=== PATIENT | female | born 1980 | race Hispanic/Latino ===

== ENCOUNTER 2022-03-12 12:25 | Emergency (ER) | payer OTHER ==
[~2022-03-12] VITALS: Ht 152.4 cm; Wt 133.8 kg
[2022-03-12 12:27] VITALS: BP_DIAS 97
[2022-03-12] MEDS ORDERED: ACETAMINOPHEN 500 MG TABLET ONE (12:33)
[2022-03-12 12:57] LABS: BASOPHILS % (AUTO) 0.2 % (0.0-5.0); HEMATOCRIT 35.7 % (36-48); LYMPHOCYTES % (AUTO) 19.3 % (21.0-51.0); MEAN CORPUSCULAR HEMOGLOBIN 25.6 pg (27.0-33.0); MEAN CORPUSCULAR HGB CONC 30.8 g/dL (32.0-36.0); MONOCYTES % (AUTO) 9.6 % (3.0-13.0); NEUTROPHILS % (AUTO) 69.9 % (40.0-77.0); PLATELET COUNT (AUTO) 278 K/uL (130-400); RED CELL DISTRIBUTION WIDTH 15.4 % (11.0-15.5); WHITE BLOOD COUNT (AUTO) 6.3 K/uL (4.8-10.8)
[2022-03-12] MEDS ORDERED: 0.9%NACL 1000ML 1,000 ML IV ONE (13:00)
[2022-03-12 13:01] LABS: APPEARANCE,URINE Cloudy (CLEAR); BILIRUBIN,URINE Negative (NEGATIVE); COLOR,URINE Yellow (YELLOW); GLUCOSE, URINE (UA) Negative (NEGATIVE); HCG,QUAL RESULT NEGATIVE (NEGATIVE); KETONES,URINE Trace mg/dL (NEGATIVE); LEUKOCYTE ESTERASE ,URINE Trace (NEGATIVE); NITRATE,URINE Negative (NEGATIVE); OCCULT BLOOD,URINE Negative (NEGATIVE); PROTEIN,URINE POS 1+ mg/dL (NEGATIVE)
[2022-03-12 13:11] LABS: BACTERIA,URINE Few /HPF (None Seen); RBC,URINE 0-1 /HPF (0-1); WBC,URINE 0-1 /HPF (0-1)
[2022-03-12 13:12] LABS: SQUAMOUS EPITHELIAL CELL,UR 0-2 /HPF (0-2)
[2022-03-12 13:14] LABS: CREATININE 0.8 mg/dL (0.5-1.5); POTASSIUM 3.5 mmol/L (3.5-5.1)
[2022-03-12 13:24] LABS: ALBUMIN 3.5 g/dL (3.5-5.0); BILIRUBIN,TOTAL 0.3 mg/dL (0.2-1.0); TOTAL PROTEIN, SERUM 7.6 g/dL (6.0-8.3)
[2022-03-12] MEDS ORDERED: KETOROLAC 15MG/ML VIAL (15MG/ML) IV ONE (14:00)
[2022-03-12] MEDS ORDERED: KETOROLAC 15MG/ML VIAL (15MG/ML) ONE (15:49)
[2022-03-12 15:55] VITALS: BP_SYST 0
[2022-03-12] MEDS ORDERED: CEFTRIAXONE 1G VIAL IVP ONE (16:00)
[2022-03-12] MEDS ORDERED: DOXY-336 PO (16:33)
[2022-03-12] MEDS ORDERED: ONDA4TAB10 PO (16:33)
[2022-03-12] MEDS ORDERED: IBUP-2070 PO (16:33)
== END 2022-03-12 17:03 | disposition home or self-care (01) ==
LOC: EDH 12:25
DX: B34.9 Viral infection, unspecified (principal); Z20.822 Contact with and (suspected) exposure to COVID-19
CPT/HCPCS: 36415; 71045; 80053; 81001; 81025; 83605; 84484; 85025; 86000; 87040 ×2; 87635; 87804 ×2; 93005; 96361; 96374; 96375; 99285; C9803; J0696; J1885; J7030

== ENCOUNTER 2022-05-25 15:55 | Emergency (ER) | payer OTHER ==
[~2022-05-25] VITALS: Ht 154.9 cm; Wt 131.5 kg
[~2022-05-25 15:55] MED LIST: DOXY-336 PO; IBUP-2070 PO; ONDA4TAB10 PO
[2022-05-25 16:02] VITALS: BP 149/74
[2022-05-25] MEDS ORDERED: DEXAMETHASONE 4 MG TAB PO SCH (16:30)
[2022-05-25] MEDS ORDERED: DEXAMETHASONE 4 MG TAB ONE (16:33)
[2022-05-25] MEDS ORDERED: NAPR-1180 PO (16:36)
[2022-05-25] MEDS ORDERED: DEXA6TAB7 PO (16:36)
== END 2022-05-25 16:43 | disposition home or self-care (01) ==
LOC: EDH 15:55
DX: G56.02 Carpal tunnel syndrome, left upper limb (principal); E66.01 Morbid (severe) obesity due to excess calories; Z79.1 Long term (current) use of non-steroidal anti-inflammatories (NSAID); Z79.52 Long term (current) use of systemic steroids; Z79.899 Other long term (current) drug therapy; Z90.49 Acquired absence of other specified parts of digestive tract; Z68.43 Body mass index [BMI] 50.0-59.9, adult
CPT/HCPCS: 99283; 29125; J8540